=== PATIENT | female | born 1945 | race Caucasian/White ===

== ENCOUNTER 2018-06-28 00:48 | Observation (INO) | payer MEDICARE, OTHER ==
[~2018-06-28] VITALS: Ht 147.3 cm; Wt 61.2 kg
[~2018-06-28 00:48] MED LIST: AMLODIPINE-BEN1 EAC3 PO; HYDROCHLOROTH12.5 MG PO; METOPROLOL TART50 MG PO; PANTOPRAZOLE SO40 MG PO; PRAVASTATIN SOD10 MG PO; PREDNISONE20 MG PO
[2018-06-28] MEDS ORDERED: ASPIRIN 81 MG CHEW TAB PO STA (01:18)
[2018-06-28] MEDS ORDERED: NITROGLYCERIN 2% OINT 1 GM PKT TOP ONE (01:30)
[2018-06-28 02:06] LABS: BASOPHILS # (AUTO) 0.1 (0.0-0.1); BASOPHILS % 0.4 % (0.0-1.0); EOSINOPHILS # (AUTO) 0.2 (0.0-0.4); EOSINOPHILS % 1.4 % (0.0-6.0); HEMATOCRIT 31.7 % (34.2-44.1); HEMOGLOBIN 10.1 g/dL (12.0-16.0); LYMPHOCYTES # (AUTO) 2.4 (1.0-3.2); LYMPHOCYTES % 18.5 % (18.0-39.1); MEAN CORPUSCULAR HEMOGLOBIN 27.7 pg (28-32); MEAN CORPUSCULAR HGB CONC 31.9 g/dL (31-35); MEAN CORPUSCULAR VOLUME 87.1 fL (81-99); MONOCYTES # (AUTO) 0.9 (0.2-0.8); MONOCYTES % 6.8 % (4.4-11.3); NEUTROPHILS # (AUTO) 9.6 (2.1-6.9); NEUTROPHILS % 72.6 % (38.7-80.0); PLATELET COUNT 432 x10e3/uL (140-360); RED BLOOD COUNT 3.64 x10e6/uL (3.6-5.1); RED CELL DISTRIBUTION WIDTH 13.3 % (11.7-14.4)
[2018-06-28 02:12] LABS: INR 1.04; PROTHROMBIN TIME 12.8 seconds (11.9-14.5)
[2018-06-28 02:13] LABS: PARTIAL THROMBOPLASTIN TIME 33.6 seconds (23.8-35.5)
[2018-06-28 02:19] LABS: BILIRUBIN,URINE NEGATIVE (NEGATIVE); CLARITY,URINE CLEAR (CLEAR); COLOR,URINE YELLOW (YELLOW); KETONES,URINE NEGATIVE (NEGATIVE); LEUKOCYTE ESTERASE ,URINE 1+ (NEGATIVE); NITRITE,URINE NEGATIVE (NEGATIVE); PROTEIN,URINE DIPSTICK TRACE (NEGATIVE); URINE UROBILINOGEN 0.2 mg/dL (0.2 - 1)
[2018-06-28 02:20] LABS: BACTERIA,URINE RARE /HPF; EPITHELIAL CELLS,URINE FEW /LPF; RBC,URINE 0-5 /HPF (0-5)
[2018-06-28 02:24] LABS: ALANINE AMINOTRANSFERASE 13 IU/L (0-55); ALBUMIN 3.5 g/dL (3.5-5.0); ALKALINE PHOSPHATASE 54 IU/L (40-150); ANION GAP 15.5 mmol/L (8-16); BLOOD UREA NITROGEN 11 mg/dL (7-26); BUN/CREATININE RATIO 15 (6-25); CALCIUM 9.5 mg/dL (8.4-10.2); CARBON DIOXIDE 22 mmol/L (22-29); CHLORIDE 107 mmol/L (98-107); CREATINE KINASE 174 IU/L (29-168); CREATININE, SERUM 0.75 mg/dL (0.57-1.11); EST GLOMERULAR FILTRATION RATE > 60 ML/MIN (60-); GLUCOSE 100 mg/dL (74-118); LIPASE 43 U/L (8-78); MAGNESIUM 1.6 MG/DL (1.3-2.1); POTASSIUM 3.5 mmol/L (3.5-5.1); SODIUM 141 mmol/L (136-145)
--- NOTE | 2018-06-28 02:29 | Diagnostic Imaging Report ---
EXAM: CHEST SINGLE (NOT PORTABLE), AP 1 view INDICATION: Hypertension, chest pain COMPARISON: AP view of the chest December 27, 2010 FINDINGS: LINES/TUBES: Loop recorder projects over the left chest. LUNGS: No consolidations or edema. PLEURA: No effusions or pneumothorax. HEART AND MEDIASTINUM: Normal size and contour. BONES AND SOFT TISSUES: No acute findings. Hiatal hernia. Surgical clips right upper quadrant of the abdomen. IMPRESSION: No acute thoracic abnormality. Signed by: Dr. Alisha Brandon M.D. on 06/28/2018 2:26 AM
[2018-06-28] MEDS ORDERED: ONDANSETRON HCL INJ 2 MG/ML VIAL IV PRN (06:45)
[2018-06-28] MEDS ORDERED: MORPHINE SULFATE 2 MG/ML SYR IV PRN (06:45)
[2018-06-28] MEDS ORDERED: FAMOTIDINE 20 MG/2 ML VIAL IV SCH (06:45)
[2018-06-28] MEDS ORDERED: NITROGLYCERIN 0.4 MG SUBL SL PRN (06:45)
[2018-06-28] MEDS ORDERED: ASPIRIN 81 MG ENTERIC COATED PO SCH (09:00)
[2018-06-28] MEDS ORDERED: NITROGLYCERIN 2% OINT 1 GM PKT TOP SCH (12:00)
--- NOTE | 2018-06-28 13:22 | History and Physical ---
Patient was not or evaluated by me. Patient came in apparently for chest pain. Patient left against medical advice around 7:37 a.m. patient signed appropriate documentation which was left in the chart. I never evaluated the patient. Patient eventually left against medical advice. Job#: [id number] [id number]
== END 2018-06-28 07:37 | disposition left against medical advice (07) ==
LOC: ER 00:48 → ERHOLD 06:39
PROVIDERS: ADMIT Internal Medicine; ATTEND Internal Medicine
DX: R07.2 Precordial pain (principal)
CPT/HCPCS: 36415; 71045; 80053; 81001; 82550; 82553; 83690; 83735; 83880; 84484; 85025; 85610; 85730; 87086; 93005; 99284; G0378

== ENCOUNTER 2021-12-07 14:01 | Inpatient (IN) | payer MEDICARE, OTHER ==
[~2021-12-07] VITALS: Ht 147.3 cm; Wt 66.7 kg
[2021-12-07] MEDS ORDERED: SODIUM CHLORIDE FLUSH 10 ML SYR INJ PRN ×2 (14:15→16:45)
[2021-12-07 14:37] LABS: BASOPHILS # (AUTO) 0.1 (0.0-0.1); BASOPHILS % 0.7 % (0.0-1.0); EOSINOPHILS # (AUTO) 0.2 (0.0-0.4); EOSINOPHILS % 1.6 % (0.0-6.0); HEMATOCRIT 34.2 % (34.2-44.1); HEMOGLOBIN 10.6 g/dL (12.0-16.0); LYMPHOCYTES # (AUTO) 2.5 (1.0-3.2); MEAN CORPUSCULAR VOLUME 90.2 fL (81-99); MONOCYTES # (AUTO) 0.7 (0.2-0.8); MONOCYTES % 6.8 % (4.4-11.3); NEUTROPHILS # (AUTO) 7.1 (2.1-6.9); NEUTROPHILS % 66.6 % (38.7-80.0); PLATELET COUNT 437 x10e3/uL (140-360); RED BLOOD COUNT 3.79 x10e6/uL (3.6-5.1); RED CELL DISTRIBUTION WIDTH 13.4 % (11.7-14.4)
[2021-12-07 14:46] LABS: INR 0.97; PARTIAL THROMBOPLASTIN TIME 35.4 seconds (23.8-35.5); PROTHROMBIN TIME 13.6 seconds (11.9-14.5)
[2021-12-07 14:53] LABS: ALBUMIN 3.7 g/dL (3.5-5.0); ANION GAP 11.8 mmol/L (8-16); CALCIUM 9.5 mg/dL (8.4-10.2); CREATININE, SERUM 0.83 mg/dL (0.57-1.11); POTASSIUM 3.8 mmol/L (3.5-5.1)
[2021-12-07] MEDS ORDERED: Morphine 4mg Syringe 4 MG/ML INJ IV ONE (15:00)
[2021-12-07] MEDS: METHYLPREDNISOLONE 4 MG TAB PO SCH (17:51)
[2021-12-07 19:50] VITALS: BP 171/65
[2021-12-07 20:05] VITALS: BP 171/65
[2021-12-07] MEDS: Morphine 2mg Syringe 2 MG/ML SYR IV PRN (21:38)
[2021-12-07] MEDS: ONDANSETRON HCL INJ 2MG/ML 2ML 2 MG/ML VIAL IV PRN (21:38)
[2021-12-07] MEDS ORDERED: OXYBUTYNIN CHLOR5 MG PO (22:28)
[2021-12-07] MEDS ORDERED: CLOPIDOGREL75 MG PO (22:28)
[2021-12-07] MEDS ORDERED: LIPITOR20 MG PO (22:28)
[2021-12-07] MEDS ORDERED: ROPINIROLE HCL1 MG PO (22:28)
[2021-12-07] MEDS ORDERED: NEURONTIN300 MG PO (22:28)
[2021-12-07] MEDS ORDERED: SERTRALINE HCL50 MG PO (22:28)
[2021-12-07] MEDS ORDERED: FOLIC ACID0.4 MG PO (22:28)
[2021-12-07] MEDS ORDERED: NITROSTAT0.4 MG SL (22:28)
[2021-12-07] MEDS ORDERED: NITROGLYCERIN 0.4 MG SUBL SL PRN (23:00)
[2021-12-07] MEDS ORDERED: HYDRALAZINE HCL 20 MG/ML VIAL IV PRN (23:00)
[2021-12-07] MEDS ORDERED: ACETAMINOPHEN 325 MG TAB PO PRN (23:15)
[2021-12-08] VITALS (8 sets, daily range): BP systolic 99–146; BP diastolic 48–66
[2021-12-08] MEDS: Morphine 2mg Syringe 2 MG/ML SYR IV PRN ×3 (01:50→10:29)
[2021-12-08 06:04] LABS: BASOPHILS # (AUTO) 0.1 (0.0-0.1); BASOPHILS % 0.5 % (0.0-1.0); EOSINOPHILS # (AUTO) 0.1 (0.0-0.4); EOSINOPHILS % 0.9 % (0.0-6.0); HEMOGLOBIN 9.8 g/dL (12.0-16.0); LYMPHOCYTES # (AUTO) 2.3 (1.0-3.2); LYMPHOCYTES % 23.7 % (18.0-39.1); MEAN CORPUSCULAR HEMOGLOBIN 27.7 pg (28-32); MEAN CORPUSCULAR HGB CONC 30.6 g/dL (31-35); MEAN CORPUSCULAR VOLUME 90.4 fL (81-99); MONOCYTES # (AUTO) 0.6 (0.2-0.8); MONOCYTES % 5.8 % (4.4-11.3); NEUTROPHILS # (AUTO) 6.7 (2.1-6.9); NEUTROPHILS % 68.9 % (38.7-80.0); PLATELET COUNT 397 x10e3/uL (140-360); RED BLOOD COUNT 3.54 x10e6/uL (3.6-5.1); RED CELL DISTRIBUTION WIDTH 13.2 % (11.7-14.4)
[2021-12-08] MEDS: ONDANSETRON HCL INJ 2MG/ML 2ML 2 MG/ML VIAL IV PRN ×2 (06:26→10:29)
[2021-12-08 06:35] LABS: ALBUMIN 3.1 g/dL (3.5-5.0); ANION GAP 11.3 mmol/L (8-16); CALCIUM 9.1 mg/dL (8.4-10.2); CREATININE, SERUM 0.81 mg/dL (0.57-1.11); POTASSIUM 4.3 mmol/L (3.5-5.1)
[2021-12-08 06:54] LABS: FERRITIN 118.98 ng/mL (4.63-204.00)
[2021-12-08] MEDS ORDERED: ROPINIROLE HCL 1 MG TAB PO SCH (09:00)
[2021-12-08] MEDS ORDERED: CLOPIDOGREL BISULFATE 75 MG TAB PO SCH (09:00)
[2021-12-08] MEDS ORDERED: GABAPENTIN 300 MG CAP PO SCH (09:00)
[2021-12-08] MEDS ORDERED: GABAPENTIN 100 MG CAP PO SCH (09:45)
[2021-12-08] MEDS ORDERED: HYDROCODONE/APAP 5MG-325MG TAB PO PRN (09:45)
[2021-12-08] MEDS ORDERED: CELECOXIB 100 MG CAP PO SCH (09:45)
[2021-12-08] MEDS: OXYBUTYNIN CHLORIDE 5 MG TAB PO SCH ×2 (09:50→17:09)
[2021-12-08] MEDS: METOPROLOL TARTRATE 50 MG TAB PO SCH ×2 (09:51→17:00)
[2021-12-08] MEDS: BENAZEPRIL HCL 10 MG TAB PO SCH (09:51)
[2021-12-08] MEDS: AMLODIPINE BESYLATE 10 MG TAB PO SCH (09:52)
[2021-12-08] MEDS: PANTOPRAZOLE SOD 40 MG TABEC PO SCH (09:53)
[2021-12-08] MEDS: SERTRALINE HCL 50 MG TAB PO SCH (09:53)
[2021-12-08] MEDS: GABAPENTIN 100 MG CAP PO SCH ×3 (10:29→20:58)
[2021-12-08] MEDS: SENNA-S TABLET PO SCH ×2 (10:29→17:09)
[2021-12-08] MEDS: METHYLPREDNISOLONE 4 MG TAB PO SCH (13:30)
[2021-12-08] MEDS ORDERED: ENOXAPARIN SOD INJ 40 MG/0.4 ML SYR SC SCH (17:00)
[2021-12-08] MEDS: ATORVASTATIN 20 MG TAB PO SCH (20:58)
[2021-12-08] MEDS: ROPINIROLE HCL 1 MG TAB PO SCH (20:58)
[2021-12-09] VITALS (11 sets, daily range): BP systolic 90–152; BP diastolic 38–74
[2021-12-09] MEDS: Morphine 2mg Syringe 2 MG/ML SYR IV PRN ×2 (00:17→14:46)
[2021-12-09 06:11] LABS: BASOPHILS % 0.4 % (0.0-1.0); EOSINOPHILS % 0.4 % (0.0-6.0); HEMATOCRIT 31.1 % (34.2-44.1); HEMOGLOBIN 9.3 g/dL (12.0-16.0); LYMPHOCYTES # (AUTO) 2.2 (1.0-3.2); LYMPHOCYTES % 21.4 % (18.0-39.1); MEAN CORPUSCULAR HEMOGLOBIN 27.9 pg (28-32); MEAN CORPUSCULAR HGB CONC 29.9 g/dL (31-35); MEAN CORPUSCULAR VOLUME 93.4 fL (81-99); MONOCYTES # (AUTO) 0.6 (0.2-0.8); MONOCYTES % 5.5 % (4.4-11.3); NEUTROPHILS # (AUTO) 7.5 (2.1-6.9); PLATELET COUNT 401 x10e3/uL (140-360); RED BLOOD COUNT 3.33 x10e6/uL (3.6-5.1)
[2021-12-09 06:34] LABS: ANION GAP 13.3 mmol/L (8-16); CALCIUM 9.7 mg/dL (8.4-10.2); CREATININE, SERUM 1.08 mg/dL (0.57-1.11); POTASSIUM 4.3 mmol/L (3.5-5.1)
[2021-12-09] MEDS: BENAZEPRIL HCL 10 MG TAB PO SCH (08:03)
[2021-12-09] MEDS: METOPROLOL TARTRATE 50 MG TAB PO SCH ×2 (08:03→17:00)
[2021-12-09] MEDS: METHYLPREDNISOLONE 4 MG TAB PO SCH (08:03)
[2021-12-09] MEDS: OXYBUTYNIN CHLORIDE 5 MG TAB PO SCH ×2 (08:04→17:19)
[2021-12-09] MEDS: GABAPENTIN 100 MG CAP PO SCH ×3 (08:04→20:12)
[2021-12-09] MEDS: AMLODIPINE BESYLATE 10 MG TAB PO SCH (08:05)
[2021-12-09] MEDS: PANTOPRAZOLE SOD 40 MG TABEC PO SCH (08:06)
[2021-12-09] MEDS: SERTRALINE HCL 50 MG TAB PO SCH (08:06)
[2021-12-09] MEDS: SENNA-S TABLET PO SCH ×2 (08:06→17:23)
[2021-12-09] MEDS: ROPINIROLE HCL 1 MG TAB PO SCH (20:12)
[2021-12-09] MEDS: ATORVASTATIN 20 MG TAB PO SCH (20:12)
[2021-12-10 00:24] VITALS: BP 102/48
[2021-12-10 04:56] VITALS: BP 121/46
[2021-12-10] MEDS: Morphine 2mg Syringe 2 MG/ML SYR IV PRN (06:07)
[2021-12-10 08:28] VITALS: BP 123/56
[2021-12-10 08:53] VITALS: BP 123/56
[2021-12-10] MEDS: METOPROLOL TARTRATE 50 MG TAB PO SCH (09:00)
[2021-12-10] MEDS: BENAZEPRIL HCL 10 MG TAB PO SCH (09:00)
[2021-12-10] MEDS: AMLODIPINE BESYLATE 10 MG TAB PO SCH (09:00)
[2021-12-10] MEDS: METHYLPREDNISOLONE 4 MG TAB PO SCH (09:22)
[2021-12-10] MEDS: OXYBUTYNIN CHLORIDE 5 MG TAB PO SCH (09:22)
[2021-12-10] MEDS: PANTOPRAZOLE SOD 40 MG TABEC PO SCH (09:22)
[2021-12-10] MEDS: SERTRALINE HCL 50 MG TAB PO SCH (09:22)
[2021-12-10] MEDS: GABAPENTIN 100 MG CAP PO SCH (09:22)
[2021-12-10] MEDS: SENNA-S TABLET PO SCH (09:22)
[2021-12-10 13:01] VITALS: BP 123/56
== END 2021-12-10 13:23 | disposition home health service (06) | DRG 605 ==
LOC: ER 14:14 → ERHOLD 16:59 → MED/SURG 19:58 → OBSVTOIN 12-08 09:38
PROVIDERS: ADMIT Internal Medicine; ATTEND Internal Medicine
DX: S70.02XA Contusion of left hip, initial encounter (principal); D62 Acute posthemorrhagic anemia; W19.XXXA Unspecified fall, initial encounter; M25.59 Pain in other specified joint; Z91.81 History of falling; Z96.642 Presence of left artificial hip joint; I25.10 Atherosclerotic heart disease of native coronary artery without angina pectoris; K21.9 Gastro-esophageal reflux disease without esophagitis; I10 Essential (primary) hypertension; G25.81 Restless legs syndrome; Z20.822 Contact with and (suspected) exposure to COVID-19; M16.0 Bilateral primary osteoarthritis of hip
CPT/HCPCS: 36415; 72192; 80048; 80053; 82607; 82728; 82746; 83540; 84466; 85025; 85610; 85730; 93005; 96360; 97139; 99284; G0378; J2270; J2405; J7509; U0002

== ENCOUNTER 2022-05-25 17:51 | Emergency (ER) | payer MEDICARE ==
[~2022-05-25] VITALS: Ht 147.3 cm; Wt 66.7 kg
[~2022-05-25 17:51] MED LIST changes: +CLOPIDOGREL75 MG PO; +FOLIC ACID0.4 MG PO; +LIPITOR20 MG PO; +NEURONTIN300 MG PO; +NITROSTAT0.4 MG SL; +OXYBUTYNIN CHLOR5 MG PO; +ROPINIROLE HCL1 MG PO; +SERTRALINE HCL50 MG PO
[2022-05-25] MEDS ORDERED: ACETAMINOPHEN 650 MG SUPP PR ONE (18:15)
[2022-05-25] MEDS ORDERED: SODIUM CHLORIDE 0.9% 1000ML 1,000 ML IV ONE (18:15)
[2022-05-25] MEDS ORDERED: SODIUM CHLORIDE 0.9% 1000ML 2,000 ML ONE (18:16)
[2022-05-25 18:22] LABS: CLARITY,URINE SL CLOUDY (CLEAR); COLOR,URINE YELLOW (YELLOW)
[2022-05-25 18:23] LABS: KETONES,URINE NEGATIVE (NEGATIVE); LEUKOCYTE ESTERASE ,URINE NEGATIVE (NEGATIVE); NITRITE,URINE NEGATIVE (NEGATIVE); PROTEIN,URINE DIPSTICK NEGATIVE (NEGATIVE); URINE UROBILINOGEN 0.2 mg/dL (0.2 - 1)
[2022-05-25 18:25] LABS: BASOPHILS % 0.3 % (0.0-1.0); EOSINOPHILS % 0.2 % (0.0-6.0); HEMATOCRIT 25.5 % (34.2-44.1); HEMOGLOBIN 7.7 g/dL (12.0-16.0); LYMPHOCYTES # (AUTO) 0.8 (1.0-3.2); LYMPHOCYTES % 7.7 % (18.0-39.1); MEAN CORPUSCULAR HEMOGLOBIN 25.2 pg (28-32); MEAN CORPUSCULAR HGB CONC 30.2 g/dL (31-35); MEAN CORPUSCULAR VOLUME 83.6 fL (81-99); MONOCYTES # (AUTO) 0.4 (0.2-0.8); MONOCYTES % 4.4 % (4.4-11.3); NEUTROPHILS # (AUTO) 8.8 (2.1-6.9); NEUTROPHILS % 87.1 % (38.7-80.0); PLATELET COUNT 365 x10e3/uL (140-360); RED BLOOD COUNT 3.05 x10e6/uL (3.6-5.1); RED CELL DISTRIBUTION WIDTH 15.2 % (11.7-14.4)
[2022-05-25 18:29] LABS: ALBUMIN/GLOBULIN RATIO 0.7 (0.8-2.0); ANION GAP 14.7 mmol/L (8-16); CREATININE, SERUM 0.71 mg/dL (0.57-1.11); POTASSIUM 3.7 mmol/L (3.5-5.1)
[2022-05-25] MEDS ORDERED: IBUPROFEN 600 MG TAB PO STA (19:38)
[2022-05-25] MEDS ORDERED: METOPROLOL TARTRATE 50 MG TAB PO ONE (20:45)
== END 2022-05-25 21:00 | disposition home or self-care (01) ==
LOC: ER 18:06
DX: R50.9 Fever, unspecified (principal); U07.1 COVID-19; D64.9 Anemia, unspecified; I10 Essential (primary) hypertension; E78.5 Hyperlipidemia, unspecified; K21.9 Gastro-esophageal reflux disease without esophagitis; R94.31 Abnormal electrocardiogram [ECG] [EKG]; Z86.73 Personal history of transient ischemic attack (TIA), and cerebral infarction without residual deficits
CPT/HCPCS: 36415; 71045; 80053; 81001; 83605; 85025; 87040; 87086; 93005; 99284; J0696; J7030; U0002